=== PATIENT | female | born 1990 | race Caucasian/White ===

== ENCOUNTER → 2020-07-30 | Outpatient (CLI) | payer OTHER ==
--- NOTE | 2020-07-30 11:11 | Diagnostic Imaging Report ---
CLINICAL INDICATION: Patient has neuropathic pain in both feet and chronic low back pain. EXAM: MRI of the lumbar spine performed without IV contrast. Sagittal T2, sagittal T1, sagittal T2 fat-sat, and axial T2. COMPARISON: None. FINDINGS: There is a transitional lumbosacral vertebra seen which should be labeled as S1. There is a small S1-S2 intervertebral disc. There are 5 non-rib bearing lumbar type vertebra noted. There is no acute lumbar spine fracture or dislocation. There is chronic appearing Schmorl's nodes involving the endplates at the T11-L4 levels. There is minimal Modic type I degenerative signal changes involving the inferior aspects of the L2 and L3 vertebra. There are small anterior spurs at the L2-L3 level. The visualized portions of the distal thoracic spinal cord, conus medullaris, and cauda equina nerve roots are unremarkable. The conus medullaris tip is seen at the lower L2 vertebral body level. L1-L2: There is a very subtle left paracentral disc bulge. There is no significant central spinal canal or neural foramen narrowing. L2-L3: There is a mild diffuse disc bulge and moderate loss of disc space height and low T2 degenerative disc signal changes. There is minimal impression upon the thecal sac anteriorly. There is no significant neural foramen narrowing. L3-L4: There is no significant central spinal canal or neural foramen narrowing. L4-L5: There is mild bilateral facet arthropathy. There is no significant central spinal canal or neural foramen narrowing. L5-S1: There is mild bilateral facet arthropathy. There is a subtle right paracentral disc bulge with focal annular tear. There is no significant left neural foramen narrowing. There is mild right neural foramen narrowing. There is no significant central canal stenosis. IMPRESSION: 1: There is a transitional lumbosacral vertebra which be designated as the S1 vertebra. There is a small S1-S2 intervertebral disc. 2: There is a mild L2-L3 diffuse disc bulge with minimal encroachment upon the central canal narrowing anteriorly. 3: There is a small L5-S1 posterior disc bulge with annular tear. There is mild right L5-S1 neural foramen narrowing. 4: There are multilevel Schmorl's node seen throughout the thoracolumbar spine. Dictated by: Dictated on workstation # [id number]
== END ==
LOC: RAD 10:15
PROVIDERS: ATTEND Physician Assistant
DX: G57.93 Unspecified mononeuropathy of bilateral lower limbs (principal); M51.26 Other intervertebral disc displacement, lumbar region; M51.45 Schmorl's nodes, thoracolumbar region
CPT/HCPCS: 72148